=== PATIENT | female | born 1945 | race Caucasian/White ===

== ENCOUNTER 2018-11-10 17:12 | Inpatient (IN) ==
[2018-11-10] MEDS ORDERED: ONDANSETRON 4 MG/2 ML VIAL IV PRN (21:58)
[2018-11-10] MEDS ORDERED: ACETAMINOPHEN 325 MG TABLET PO PRN (21:58)
[2018-11-10] MEDS ORDERED: hydrALAZINE 20 MG/1 ML VIAL IV PRN (21:58)
[2018-11-10] MEDS ORDERED: NICOTINE 21 MG/24 HR PATCH TRANSDERM PRN (21:58)
[2018-11-10 23:36] LABS: Basophils % 0.4 % (0.0-0.8); Eosinophils # 0.1 10*3/uL (0.0-0.87); Eosinophils % 1.3 % (0.00-10.9); Hematocrit 37.5 VOL% (35.7-47.0); Hemoglobin 11.8 GM/DL (12.0-16.0); Immature Granulocytes % 0.3 %; Immature Granulocytes Absolute 0.02 #; Lymphocytes # 0.8 10*3/uL (1.4-4.0); Lymphocytes % 11.9 % (21.3-54.2); Mean Corpuscular HGB Conc 31.5 GM/DL (32-36); Mean Corpuscular Volume 89.9 FL (87-102); Mean Platelet Volume 11.1 FL (9.6-12.0); Monocytes % 9.1 % (1.7-12.7); Platelet Count 119 T/CUMM (130-400); Red Blood Count 4.17 MC/CUMM (3.8-5.5); Red Cell Distribution Width 14.6 % (9.3-17.3); White Blood Count 6.7 T/CUMM (4-12)
[2018-11-10] MEDS: MORPHINE 4 MG/1 ML VIAL IV PRN (23:37)
[2018-11-10] MEDS: SODIUM CHLORIDE 0.9% 1,000 ML IV SCH (23:38)
[2018-11-10 23:56] LABS: Albumin 3.4 G/DL (3.4-5.0); Bilirubin,Total 0.6 MG/DL (0.2-1.0); Calcium 8.7 MG/DL (8.5-10.1); Osmolality,Calculated 289.8 MOS/KG (273-304); Total Protein 6.6 G/DL (6.4-8.3)
[2018-11-11 05:55] LABS: Apearance,Urine CLEAR (Clear); Bilirubin,Urine Negative (Negative); Blood, Urine Moderate mg/dL (Negative); Glucose,Urine (UA) Negative (Negative); Ketones,Urine Negative (Negative); Mucus,Urine Occasional /LPF (Occasional); Nitrite,Urine Negative (Negative); Protein,Urine Negative; RBC,Urine 47 /HPF (0-4); Squamous Epithelial Cell,Urine Occasional /HPF (0-10); Urine Color Yellow (Yellow); Urine Specific Gravity 1.013 (1.001-1.035); Urine Urobilinogen < 2.0 EU/DL (0.2-1.0); WBC,Urine 16 /HPF (0-6)
[2018-11-11] MEDS: MORPHINE 4 MG/1 ML VIAL IV PRN (08:05)
[2018-11-11] MEDS: SODIUM CHLORIDE 0.9% 1,000 ML IV SCH ×2 (08:06→23:14)
[2018-11-11] MEDS: METOPROLOL SUCCINATE XL 100 MG TABLET PO SCH (11:08)
[2018-11-11] MEDS ORDERED: cefTRIAXone 1,000 MG VIAL ONE (12:01)
[2018-11-11] MEDS ORDERED: ePHEDrine 50 MG/ML AMP ONE (12:37)
[2018-11-11] MEDS ORDERED: PROPOFOL 200 MG/20 ML VIAL IV ONE (12:38)
[2018-11-11] MEDS ORDERED: SEVOFLURANE 1 UNIT/15 MINUTE INH ONE (12:39)
[2018-11-11] MEDS ORDERED: ETOMIDATE 40 MG/20 ML VIAL IV ONE (12:39)
[2018-11-11] MEDS ORDERED: ONDANSETRON 4 MG/2 ML VIAL ONE (12:39)
[2018-11-11] MEDS ORDERED: fentaNYL 100 MCG/2 ML VIAL ONE (12:39)
[2018-11-11] MEDS ORDERED: DEXAMETHASONE 4 MG/1 ML VIAL ONE (12:39)
[2018-11-11] MEDS ORDERED: PROMETHAZINE 25 MG/1 ML VIAL ONE (12:39)
[2018-11-11] MEDS: ASPIRIN EC 81 MG TABLET PO SCH (14:03)
[2018-11-11] MEDS: PARoxetine 10 MG TABLET PO SCH (14:22)
[2018-11-11] MEDS: hydroCHLOROthiazide 12.5 MG CAPSULE PO SCH (14:22)
[2018-11-11] MEDS: LOSARTAN 50 MG TABLET PO SCH (14:22)
[2018-11-11] MEDS: HYOSCYAMINE 0.125 MG TABLET PO SCH ×2 (18:22→23:12)
[2018-11-11] MEDS ORDERED: cefTRIAXone 2,000 MG in SYRINGE 1 EACH IV SCH (20:00)
[2018-11-11] MEDS ORDERED: ENOXAPARIN 40 MG/0.4 ML SYRINGE SUBCUT SCH (21:00)
[2018-11-11] MEDS ORDERED: TAMSULOSIN 0.4 MG CAPSULE PO SCH (21:00)
[2018-11-12] MEDS: HYOSCYAMINE 0.125 MG TABLET PO SCH ×3 (03:05→09:28)
[2018-11-12 05:34] LABS: Basophils % 0.2 % (0.0-0.8); Hematocrit 33.3 VOL% (35.7-47.0); Hemoglobin 10.4 GM/DL (12.0-16.0); Immature Granulocytes % 1.1 %; Immature Granulocytes Absolute 0.07 #; Lymphocytes # 0.6 10*3/uL (1.4-4.0); Lymphocytes % 9.6 % (21.3-54.2); Mean Corpuscular HGB Conc 31.2 GM/DL (32-36); Mean Corpuscular Volume 89.5 FL (87-102); Mean Platelet Volume 11.9 FL (9.6-12.0); Monocytes % 4.4 % (1.7-12.7); Neutrophils % 84.7 % (38.7-73.9); Platelet Count 134 T/CUMM (130-400); Red Blood Count 3.72 MC/CUMM (3.8-5.5); Red Cell Distribution Width 14.6 % (9.3-17.3); White Blood Count 6.1 T/CUMM (4-12)
[2018-11-12 06:13] LABS: Calcium 8.6 MG/DL (8.5-10.1); Osmolality,Calculated 287.1 MOS/KG (273-304)
[2018-11-12] MEDS ORDERED: PHENAZOPYRIDINE 95 MG TABLET PO SCH (08:00)
[2018-11-12] MEDS: ASPIRIN EC 81 MG TABLET PO SCH (09:28)
[2018-11-12] MEDS: hydroCHLOROthiazide 12.5 MG CAPSULE PO SCH (09:28)
[2018-11-12] MEDS: LOSARTAN 50 MG TABLET PO SCH (09:28)
[2018-11-12] MEDS: METOPROLOL SUCCINATE XL 100 MG TABLET PO SCH (09:29)
[2018-11-12] MEDS: PARoxetine 10 MG TABLET PO SCH (09:29)
[2018-11-12] MEDS: SODIUM CHLORIDE 0.9% 1,000 ML IV SCH (09:41)
[2018-11-12 10:38] VITALS: BP 188/73
[2018-11-13] MEDS ORDERED: LEVOFLOXACIN 500 MG TABLET PO SCH (09:00)
== END 2018-11-12 12:41 | disposition home or self-care (01) | DRG 661 ==
LOC: N.5E → OBSVTOIN 20:40 → SUATTDRO 20:40
PROVIDERS: ADMIT Hospitalist; ATTEND Hospitalist

== ENCOUNTER 2018-11-25 05:47 | Observation (INO) ==
[2018-11-25] MEDS ORDERED: FAMOTIDINE 20 MG TABLET PO ONE (06:00)
[2018-11-25] MEDS ORDERED: LEVOFLOXACIN 500 MG TABLET PO ONE (06:30)
[2018-11-25 06:41] LABS: INR 0.9; PT Patient Result 10.1 SECS (9.6-12.2); Partial Thromboplastin Time 24.2 SECS (20.8-36.0)
[2018-11-25] MEDS ORDERED: FAMOTIDINE 20 MG TABLET ONE (07:23)
[2018-11-25] MEDS ORDERED: LEVOFLOXACIN 500 MG TABLET ONE (07:23)
[2018-11-25] MEDS: LACTATED RINGERS 1,000 ML IV SCH ×2 (08:00→09:01)
[2018-11-25] MEDS ORDERED: oxyCODONE/ACETAMINOPHEN 5-325 MG TABLET PO PRN (08:25)
[2018-11-25] MEDS ORDERED: ONDANSETRON 4 MG/2 ML VIAL IV PRN (08:25)
[2018-11-25] MEDS ORDERED: ALBUTEROL/IPRATROPIUM 3 ML NEB RESP TX ONE ×2 (09:08→09:16)
[2018-11-25] MEDS ORDERED: RACEPINEPHRINE 0.5 ML NEB RESP TX ONE (09:16)
[2018-11-25] MEDS ORDERED: PROPOFOL 200 MG/20 ML VIAL IV ONE (10:51)
[2018-11-25] MEDS ORDERED: LIDOCAINE 100 MG/5 ML SYRINGE ONE (10:51)
[2018-11-25] MEDS ORDERED: SEVOFLURANE 1 UNIT/15 MINUTE INH ONE (10:51)
[2018-11-25] MEDS ORDERED: fentaNYL 100 MCG/2 ML VIAL ONE (10:52)
[2018-11-25] MEDS ORDERED: ONDANSETRON 4 MG/2 ML VIAL ONE (10:52)
[2018-11-25] MEDS ORDERED: ePHEDrine 50 MG/ML AMP ONE (10:52)
[2018-11-25] MEDS ORDERED: MIDAZOLAM 2 MG/2 ML VIAL ONE (10:52)
[2018-11-25] MEDS ORDERED: LACTATED RINGERS 1,000 ML IV ONE (10:52)
[2018-11-25] MEDS ORDERED: ALBUTEROL/IPRATROPIUM 3 ML NEB RESP TX STA (12:11)
[2018-11-25] MEDS ORDERED: FUROSEMIDE 40 MG/4 ML VIAL ONE (14:04)
[2018-11-25] MEDS ORDERED: FUROSEMIDE 20 MG/2 ML VIAL IV ONE (14:06)
[2018-11-25] MEDS ORDERED: MAGNESIUM SULF RIDER 4 GM in PREMIX 1 EACH IV PRN (14:29)
[2018-11-25] MEDS ORDERED: POTASSIUM CHLORIDE RIDER 10 MEQ in PREMIX 1 EACH IV PRN (14:29)
[2018-11-25] MEDS ORDERED: MAGNESIUM SULF RIDER 2 GM in PREMIX 1 EACH IV PRN (14:29)
[2018-11-25] MEDS ORDERED: ACETAMINOPHEN 325 MG TABLET PO PRN (14:30)
[2018-11-25] MEDS: FUROSEMIDE 20 MG/2 ML VIAL IV SCH (15:31)
[2018-11-25 19:01] LABS: Apearance,Urine CLEAR (Clear); Bacteria,Urine Occasional /HPF (Few); Bilirubin,Urine Negative (Negative); Blood, Urine Large mg/dL (Negative); Glucose,Urine (UA) Negative (Negative); Hyaline Casts,Urine 3 /LPF (0-3); Ketones,Urine Negative (Negative); Mucus,Urine Occasional /LPF (Occasional); Nitrite,Urine Negative (Negative); Protein,Urine Negative; RBC,Urine 95 /HPF (0-4); Urine Color Colorless (Yellow); Urine Specific Gravity 1.005 (1.001-1.035); Urine Urobilinogen < 2.0 EU/DL (0.2-1.0); WBC,Urine 1 /HPF (0-6)
[2018-11-25] MEDS: DOCUSATE SODIUM 100 MG CAPSULE PO SCH (21:06)
[2018-11-25] MEDS: METOPROLOL SUCCINATE XL 100 MG TABLET PO SCH (21:06)
[2018-11-25] MEDS: PIPERACILLIN/TAZOBACTAM 3,375 MG in SODIUM CHLORIDE 0.9% 100 ML IV SCH (21:14)
[2018-11-26 04:23] LABS: Basophils # 0.1 10*3/uL (0.0-0.2); Basophils % 0.5 % (0.0-0.8); Eosinophils # 0.1 10*3/uL (0.0-0.87); Eosinophils % 0.6 % (0.00-10.9); Hematocrit 31.9 VOL% (35.7-47.0); Hemoglobin 10.2 GM/DL (12.0-16.0); Immature Granulocytes % 0.3 %; Immature Granulocytes Absolute 0.04 #; Lymphocytes # 1.2 10*3/uL (1.4-4.0); Lymphocytes % 9.2 % (21.3-54.2); Mean Corpuscular Volume 87.4 FL (87-102); Mean Platelet Volume 11.9 FL (9.6-12.0); Monocytes % 7.3 % (1.7-12.7); Neutrophils % 82.1 % (38.7-73.9); Platelet Count 156 T/CUMM (130-400); Red Blood Count 3.65 MC/CUMM (3.8-5.5); Red Cell Distribution Width 14.6 % (9.3-17.3); White Blood Count 12.6 T/CUMM (4-12)
[2018-11-26] MEDS: PIPERACILLIN/TAZOBACTAM 3,375 MG in SODIUM CHLORIDE 0.9% 100 ML IV SCH ×3 (04:52→22:12)
[2018-11-26 05:06] LABS: Albumin 2.9 G/DL (3.4-5.0); Bilirubin,Total 1.1 MG/DL (0.2-1.0); Calcium 8.4 MG/DL (8.5-10.1); Osmolality,Calculated 277.7 MOS/KG (273-304); Total Protein 6.1 G/DL (6.4-8.3)
[2018-11-26 06:06] LABS: Band Neutrophils 3 % (0-10); Hypochromasia 1+; Lymphocytes 10 % (20-55); Segmented Neutrophils 82 % (50-85); Total Cells Counted 100
[2018-11-26 06:07] LABS: Microcytosis Slight; Platelet Estimate Adequate
[2018-11-26] MEDS: TAMSULOSIN 0.4 MG CAPSULE PO SCH (10:27)
[2018-11-26] MEDS: PANTOPRAZOLE 40 MG TABLET PO SCH (10:27)
[2018-11-26] MEDS: PARoxetine 10 MG TABLET PO SCH (10:27)
[2018-11-26] MEDS: FUROSEMIDE 20 MG/2 ML VIAL IV SCH ×2 (10:28→16:57)
[2018-11-26] MEDS: DOCUSATE SODIUM 100 MG CAPSULE PO SCH ×2 (10:28→22:22)
[2018-11-26] MEDS: LEVOFLOXACIN INJ 500 MG in PREMIX 1 EACH IV SCH (10:35)
[2018-11-26] MEDS: LACTATED RINGERS 1,000 ML IV SCH (17:40)
[2018-11-26] MEDS: METOPROLOL SUCCINATE XL 100 MG TABLET PO SCH (22:12)
[2018-11-27] MEDS: PIPERACILLIN/TAZOBACTAM 3,375 MG in SODIUM CHLORIDE 0.9% 100 ML IV SCH (05:18)
[2018-11-27] MEDS ORDERED: POTASSIUM CHLORIDE 20 MEQ TABLET PO ONE (07:40)
[2018-11-27] MEDS: PANTOPRAZOLE 40 MG TABLET PO SCH (09:50)
[2018-11-27] MEDS: TAMSULOSIN 0.4 MG CAPSULE PO SCH (09:50)
[2018-11-27] MEDS: PARoxetine 10 MG TABLET PO SCH (09:50)
[2018-11-27 10:16] VITALS: BP 158/76
[2018-11-27] MEDS: FUROSEMIDE 20 MG/2 ML VIAL IV SCH (10:21)
[2018-11-27] MEDS: DOCUSATE SODIUM 100 MG CAPSULE PO SCH (10:21)
[2018-11-27] MEDS: LEVOFLOXACIN INJ 500 MG in PREMIX 1 EACH IV SCH (10:22)
[2018-12-03 22:06] LABS: Stone Analysis Interpretation SEE COMMENTS
== END 2018-11-27 10:40 | disposition home or self-care (01) ==
LOC: SUATTDRO → N.SDSINP 05:47 → N.5E 05:47 → N.OR 05:47 → SUATTDRO 14:30 → N.5E 16:31
PROVIDERS: ADMIT Urology